=== PATIENT | male | born 1975 | race Hispanic/Latino ===

== ENCOUNTER 2024-10-08 20:55 | Inpatient (IN) | payer OTHER ==
[2024-10-08] MEDS ORDERED: niCARdipine 25 MG/10 ML SDV ONE ×2 (21:15→23:43)
[2024-10-08] MEDS ORDERED: Ondansetron PF 4 MG/2 ML Vial ONE (22:04)
[2024-10-08 22:19] LABS: Troponin I Less than 0.010 ng/mL (< 0.028)
[2024-10-09] MEDS ORDERED: Labetalol HCl 100 MG/20 ML VIAL SLOW IVP PRN (01:46)
[2024-10-09] MEDS ORDERED: Ondansetron PF 4 MG/2 ML Vial IVP PRN (01:46)
[2024-10-09] MEDS: Acetaminophen 325 MG TAB PO PRN (02:19)
[2024-10-09 03:29] LABS: #Basophils 0.04 10x3/uL (0.0-0.2); #Eosinophils Less than 0.03 10x3/uL (0.0-0.7); %Basophils 0.4 % (0.0-1.0); %Eosinophils 0.2 % (0.0-10.0); %Lymphocytes 11.8 % (21.0-51.0); %Monocytes 3.3 % (0.0-10.0); %Neutrophils 83.8 % (42.0-75.0); Hematocrit 43.2 % (42.0-52.0); Hemoglobin 15.9 g/dL (14.0-18.0); Mean Corpuscular HGB CONC 36.8 g/dL (32.0-36.0); Mean Corpuscular Hemoglobin 31.5 pg (27.0-31.0); Mean Corpuscular Volume 85.5 fL (78.0-98.0); Mean Platelet Volume 10.5 fL (7.4-10.4); Platelet Count 201 10x3/uL (130-400); RBC Distribution Width 12.9 % (11.5-14.5); Red Blood Cell (RBC) Count 5.05 mill/uL (4.70-6.10)
[2024-10-09 03:45] LABS: Hemoglobin A1c 5.3 % (4.0-6.0)
[2024-10-09 03:48] LABS: ALT (SGPT) 82 U/L (8-55); AST (SGOT) 29 U/L (5-34); Albumin 4.4 g/dL (3.5-5.0); Alkaline Phosphatase 88 U/L (40-110); Bilirubin, Direct 0.3 mg/dL (0.1-0.3); Bilirubin, Total 1.3 mg/dL (0.2-1.2); Protein, Total 7.1 g/dL (6.0-8.3)
[2024-10-09 04:00] VITALS: BMI 32.1
[2024-10-09 04:17] LABS: Anion Gap 13 mmol/L (10-20); BUN (Urea Nitrogen) 11 mg/dL (8.9-20.6); Calc. Creatinine Clearance 155 mL/min (70-130); Calcium 9.1 mg/dL (7.8-10.44); Carbon Dioxide 23 mmol/L (22-29); Cardiac Risk 5.9 (Less than 4.5); Chloride 103 mmol/L (98-107); Cholesterol 205 mg/dl (< 200 Desired); Estimated GFR 107; Glucose 157 mg/dL (70-105); HDL Cholesterol 35 mg/dL (>60 Neg Risk); LDL Cholesterol, Calculated 146 mg/dL; Potassium 4.3 mmol/L (3.5-5.1); Sodium 135 mmol/L (136-145); Triglycerides 122 mg/dL (Less than 150)
[2024-10-09] MEDS: Aspirin 81 mg Enteric Coated Tablet PO SCH (08:59)
[2024-10-09] MEDS: Amlodipine 5 MG TAB PO SCH (08:59)
[2024-10-09] MEDS: traMADol HCl 50 MG TAB PO PRN (21:34)
[2024-10-09] MEDS: Atorvastatin Calcium 40 MG TAB PO SCH (21:35)
[2024-10-09] MEDS: Morphine 2 MG/ML VIAL SLOW IVP SCH (22:54)
[2024-10-10 03:58] LABS: #Basophils 0.05 10x3/uL (0.0-0.2); %Basophils 0.5 % (0.0-1.0); %Eosinophils 0.7 % (0.0-10.0); %Lymphocytes 22.7 % (21.0-51.0); %Monocytes 6.4 % (0.0-10.0); %Neutrophils 69.3 % (42.0-75.0); Hemoglobin 15.6 g/dL (14.0-18.0); Mean Corpuscular HGB CONC 36.3 g/dL (32.0-36.0); Mean Corpuscular Hemoglobin 31.2 pg (27.0-31.0); Mean Platelet Volume 10.7 fL (7.4-10.4); Platelet Count 214 10x3/uL (130-400); RBC Distribution Width 12.7 % (11.5-14.5)
[2024-10-10 04:14] LABS: Anion Gap 13 mmol/L (10-20); BUN (Urea Nitrogen) 13 mg/dL (8.9-20.6); Calc. Creatinine Clearance 153 mL/min (70-130); Calcium 9.1 mg/dL (7.8-10.44); Carbon Dioxide 24 mmol/L (22-29); Chloride 101 mmol/L (98-107); Estimated GFR 107; Glucose 124 mg/dL (70-105); Potassium 3.5 mmol/L (3.5-5.1); Sodium 134 mmol/L (136-145)
[2024-10-10] MEDS: Clopidogrel Bisulfate 75 MG TAB PO SCH (09:46)
[2024-10-10] MEDS: Divalproex Sodium 250 MG (DR) TAB PO SCH ×2 (09:47→20:40)
[2024-10-10] MEDS: Amlodipine 10 MG TAB PO SCH (09:47)
[2024-10-10] MEDS ORDERED: Lisinopril 5 MG TAB PO SCH (12:00)
[2024-10-10] MEDS: Lisinopril 5 MG TAB PO SCH ×2 (13:15→20:39)
[2024-10-10] MEDS: hydrALAZINE 20 MG/ML VIAL SLOW IVP PRN (14:53)
[2024-10-11] MEDS: Senokot S 8.6-50 MG TAB PO SCH (12:31)
[2024-10-11] MEDS: Polyethylene Glycol 3350 17 GM Packet PO SCH (12:31)
[2024-10-11] MEDS: Meclizine HCl 25 MG TAB PO SCH (12:42)
[2024-10-11 12:53] VITALS: BP 122/83; TEMP 98.3
[2024-10-11] MEDS ORDERED: Divalproex Sodium 250 MG (DR) TAB PO SCH (21:00)
[2024-10-11] MEDS ORDERED: Senokot S 8.6-50 MG TAB PO SCH (21:00)
[2024-10-12] MEDS ORDERED: Polyethylene Glycol 3350 17 GM Packet PO SCH (09:00)
== END 2024-10-11 20:14 | disposition home or self-care (01) | DRG 65 ==
LOC: ERS 20:55 → 2SE 10-09 01:47 → OBSVTOIN 10-09 13:11
PROVIDERS: ADMIT Internal Medicine; ATTEND Internal Medicine
DX: I63.9 Cerebral infarction, unspecified (principal); I16.1 Hypertensive emergency; I10 Essential (primary) hypertension; Z87.891 Personal history of nicotine dependence; R29.703 NIHSS score 3; Z79.899 Other long term (current) drug therapy
CPT/HCPCS: 36415; 70551; 80048; 80061; 80076; 80164; 83036; 85025; 93005; 93306; 96374; 96375; G0378; J0360; J2272; J2405